=== PATIENT | male | born 1945 | race Caucasian/White ===

== ENCOUNTER → 2022-08-23 | Outpatient (CLI) | payer MEDICARE, BC ==
--- NOTE | 2022-08-24 07:38 | MR ---
EXAMINATION TYPE: MR lumbar spine w con DATE OF EXAM: 08/23/2022 COMPARISON: Outside MRI lumbar spine August 04, 2022 HISTORY: Low back pain into left leg, Abnormal MRI WO. Spondylosis without myelopathy. TECHNIQUE: Multiplanar, multisequence images of the lumbar spine is performed with IV contrast, utilizing 10 mL intravenous Gadavist FINDINGS: Sagittal images of the lumbar spine redemonstrate vertebral body heights to appear satisfac tory. There is advanced disc space narrowing with grade 1 retrolisthesis redemonstrated at L2-L3 leve l. . Axial and sagittal images show heterogeneous enhancement in the left lateral recess extending into th e foramen at L4-L5 level with mass effect along the lateral aspect of the spinal canal with enhanceme nt surrounding the exiting L4 nerve extending to extraforaminal location .At least moderate left-side d facet arthropathy is noted at this level. No additional areas of abnormal enhancement identified. Perispinal muscle bulk is maintained. IMPRESSION: Confirmation of enhancing soft tissue left lateral recess extending through foramen into extraforaminal level surrounding the exiting L4 nerve with local mass effect. Enhancing scar or infl ammatory tissue needs to be considered.
== END | disposition home or self-care (01) ==
LOC: RADMRIMAIN 08:57
PROVIDERS: ATTEND Orthopaedic Surgery Orthopaedic Surgery of the Spine
DX: M47.26 Other spondylosis with radiculopathy, lumbar region (principal); M51.16 Intervertebral disc disorders with radiculopathy, lumbar region; M43.16 Spondylolisthesis, lumbar region; R53.1 Weakness; M25.78 Osteophyte, vertebrae; M62.830 Muscle spasm of back
CPT/HCPCS: 72149; A9585